=== PATIENT | female | born 1990 | race African-American/Black ===

== ENCOUNTER 2020-10-02 14:40 | Emergency (ER) | payer OTHER, SELFPAY ==
[2020-10-02] VITALS (10 sets, daily range): BP systolic 123–130; BP diastolic 60–79; PULSE 58–73; RESP 13–22; TEMP 36.7; O2SAT 96–100
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
[2020-10-02 14:57] LABS: Glucose Point of Care 81 (65-105)
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
--- NOTE | 2020-10-02 15:26 | PC.NURSE ---
c-collar applied by staff
== END 2020-10-02 16:40 | disposition short-term general hospital (02) ==
PROVIDERS: Emergency Provider Emergency Medicine
DX: R10.32 Left lower quadrant pain (principal); R07.89 Other chest pain; V48.5XXA Car driver injured in noncollision transport accident in traffic accident, initial encounter
CPT/HCPCS: 71045; 82948; 99285; L0140